=== PATIENT | male | born 1985 | race African-American/Black ===

== ENCOUNTER 2020-09-29 14:55 | Observation (INO) | payer OTHER ==
[2020-09-29 17:26] LABS: Basophils % (A) 0 %; Eosinophils # (A) 0.1 k/uL (0-0.7); Eosinophils % (A) 0 %; HCT 41.4 % (39.0-53.0); HGB 13.7 gm/dL (13.0-17.5); Lymphocytes # (A) 1.3 k/uL (1.0-4.8); Lymphocytes % (A) 6 %; MCHC 33.1 g/dL (31.0-37.0); MCV 87.5 fL (80.0-100.0); Mean Platelet Volume 7.8; Monocytes # (A) 0.9 k/uL (0-1.0); Monocytes % (A) 4 %; Neutrophils % (A) 88 %; Platelet Count 213 k/uL (150-450); RBC 4.73 m/uL (4.30-5.90); RDW 12.1 % (11.5-15.5); WBC 20.4 k/uL (3.8-10.6)
[2020-09-29 17:27] LABS: Appearance,Urine Clear (Clear); Bilirubin,Urine Negative (Negative); Blood,Urine Negative (Negative); Color,Urine Yellow; Glucose,Urine (UA) Negative (Negative); Ketones,Urine Trace (Negative); Leukocyte Esterase,Urine Negative (Negative); Nitrite,Urine Negative (Negative); Protein,Urine Trace (Negative); Specific Gravity,Urine 1.017 (1.001-1.035); Urobilinogen,Urine <2.0 mg/dL (<2.0)
[2020-09-29 17:32] LABS: Partial Thromboplastin Time 23.1 sec (22.0-30.0); Prothrombin Time 10.1 sec (9.0-12.0)
[2020-09-29 17:37] LABS: ALT 105 U/L (4-49); AST 52 U/L (17-59); African American GFR (CKD) >90 (>60 ml/min/1.73 sqM); Albumin 4.1 g/dL (3.5-5.0); Alkaline Phosphatase 56 U/L (38-126); Anion Gap 7 mmol/L; Blood Urea Nitrogen 13 mg/dL (9-20); Calcium 9.3 mg/dL (8.4-10.2); Carbon Dioxide 31 mmol/L (22-30); Chloride 100 mmol/L (98-107); Glucose 118 mg/dL (74-99); Magnesium 2.4 mg/dL (1.6-2.3); Non-African American GFR(CKD) >90 (>60 ml/min/1.73 sqM); Potassium 3.6 mmol/L (3.5-5.1); Sodium 138 mmol/L (137-145); Total Bilirubin 0.3 mg/dL (0.2-1.3); Total Protein 7.1 g/dL (6.3-8.2)
--- NOTE | 2020-09-29 18:15 | ED ---
General Adult HPI <Juan Olson Rasheed - Last Filed: 09/29/20 18:50> - General Source: patient, family, EMS Mode of arrival: EMS Limitations: physical limitation <Ceci Clark - Last Filed: 09/29/20 19:04> - General Chief complaint: Dizziness Stated complaint: dizziness Time Seen by Provider: 09/29/20 15:34 - History of Present Illness Initial comments: 35 year-old male patient currently incarcerated presents to the emergency department today for evaluation of chest pain, shortness of breath, near-syncope while working out today. Patient states that he developed dizziness, shortness of breath, and chest discomfort while working out just prior to arrival. He does have history of asthma was given a breathing treatment which then caused some tingling and numbness in his bilateral hands. Patient does have a history of hypertension and has been taking medication since being incarcerated about a month ago. Patient denies any other medical history. He is unsure about family history of cardiac disease. States he has been eating and drinking without difficulty. Denies any swelling or pain to his lower trauma knees or calves. Patient denies any recent rash, fever, chills, cough, abdominal pain, nausea, vomiting, diarrhea, constipation, back pain, hematuria, dysuria, urinary urge ncy, urinary frequency, headache, visual changes, or any other complaints. (Ceci Clark) - Related Data Home Medications Medication Instructions Recorded Confirmed Albuterol Nebulized [Ventolin 2.5 mg INHALATION RT-BID PRN 09/29/20 09/29/20 Nebulized] Lisinopril [Prinivil] 10 mg PO DAILY 09/29/20 09/29/20 hydroCHLOROthiazide 25 mg PO DAILY 09/29/20 09/29/20 Allergies Allergy/AdvReac Type Severity Reaction Status Date / Time No Known Allergies Allergy Verified 09/29/20 16:04 Review of Systems ROS Other: All systems not noted in ROS Statement are negative. <Juan Olson - Last Filed: 09/29/20 18:50> ROS Other: All systems not noted in ROS Statement are negative. <Ceci Clark - Last Filed: 09/29/20 19:04> ROS Statement: Those systems with pertinent positive or pertinent negative responses have been documented in the HPI. Past Medical History Past Medical History: Asthma, Hypertension History of Any Multi-Drug Resistant Organisms: None Reported Past Surgical History: No Surgical Hx Reported Past Psychological History: No Psychological Hx Reported Smoking Status: Current every day smoker Past Alcohol Use History: None Reported Past Drug Use History: None Reported <Ceci Clark - Last Filed: 09/29/20 19:04> General Exam Limitations: physical limitation General appearance: alert, in no apparent distress, other (This is a well developed, well nourished, adult male patient in no acute distress. Vital signs 97.7, pulse 102, R 18, BP 131/72, Pulse ox 99% on room air. ) Eye exam: Present: normal appearance, PERRL, EOMI. Absent: scleral icterus, conjunctival injection, periorbital swelling ENT exam: Present: normal exam, normal oropharynx, mucous membranes moist Respiratory exam: Present: normal lung sounds bilaterally. Absent: respiratory distress, wheezes, rales, rhonchi, stridor Cardiovascular Exam: Present: regular rate, normal rhythm, normal heart sounds. Absent: systolic murmur, diastolic murmur, rubs, gallop, clicks GI/Abdominal exam: Present: soft, normal bowel sounds. Absent: distended, tenderness, guarding, rebound, rigid Neurological exam: Present: alert, oriented X3, CN II-XII intact Psychiatric exam: Present: normal affect, normal mood Skin exam: Present: warm, dry, intact, normal color. Absent: rash <Ceci Clark - Last Filed: 09/29/20 19:04> Course <Juan Olson - Last Filed: 09/29/20 18:50> Vital Signs 09/29/20 15:15 Temperature 97.7 F Pulse Rate 102 H Respiratory 18 Rate Blood Pressure 131/72 O2 Sat by Pulse 99 Oximetry - Reevaluation(s) Reevaluation #1: 09/29/20 18:[address] Valencia covering for cardiology, recommends aspirin and heparin at this time. Case discussed with the admitting physician Dr. Motley (Juan Olson) EKG Findings - EKG Comments: EKG Findings:: EKG obtained at 1706 shows normal sinus rhythm with a ventricular rate of 85, OH interval 166, QRS duration 96, QT 366, QTc 435. <Ceci Clark - Last Filed: 09/29/20 19:04> Procedures - [facility] Protocol (Time Out) Nurse: Dottie Unger <Ceci Clark - Last Filed: 09/29/20 19:04> Medical Decision Making - Lab Data Result diagrams: 09/29/20 16:55 09/29/20 16:55 <Juan Olson - Last Filed: 09/29/20 18:50> - Lab Data Result diagrams: 09/29/20 16:55 09/29/20 16:55 - Radiology Data Radiology results: report reviewed, image reviewed <Ceci Clark - Last Filed: 09/29/20 19:04> - Medical Decision Making 35-year-old male patient who is currently incarcerated, presented to the emergency department today for evaluation after having an episode of shortness of breath, dizziness, and mild chest discomfort while working out. Patient had a near syncopal episode. Denies history of IV drug use. He states he is relatively healthy with history of hypertension. Upon arrival IV was inserted, labs obtained, EKG showed normal sinus rhythm no significant ST elevation or depression was noted. Chest x-ray showed no acute cardio pulmonary process. Labs reviewed and did reveal elevated white blood cell count at 20,000. Troponin is elevated 0.19. Patient is currently asymptomatic. We did initiate heparin therapy. CT angiography of the chest is pending. Patient will be admitted for further evaluation by cardiology. Patient is agreeable. (Ceci Clark) - Lab Data Lab Results 09/29/20 09/29/20 09/29/20 Range/Units 16:55 16:55 16:55 WBC 20.4 H (3.8-10.6) k/uL RBC 4.73 (4.30-5.90) m/uL Hgb 13.7 (13.0-17.5) gm/dL Hct 41.4 (39.0-53.0) % MCV 87.5 (80.0-100.0) fL MCH 29.0 (25.0-35.0) pg MCHC 33.1 (31.0-37.0) g/dL RDW 12.1 (11.5-15.5) % Plt Count 213 (150-450) k/uL Neutrophils % 88 % Lymphocytes % 6 % Monocytes % 4 % Eosinophils % 0 % Basophils % 0 % Neutrophils # 18.0 H (1.3-7.7) k/uL Lymphocytes # 1.3 (1.0-4.8) k/uL Monocytes # 0.9 (0-1.0) k/uL Eosinophils # 0.1 (0-0.7) k/uL Basophils # 0.0 (0-0.2) k/uL PT 10.1 (9.0-12.0) sec INR 1.0 (<1.2) APTT 23.1 (22.0-30.0) sec Sodium (137-145) mmol/L Potassium (3.5-5.1) mmol/L Chloride (98-107) mmol/L Carbon Dioxide (22-30) mmol/L Anion Gap mmol/L BUN (9-20) mg/dL Creatinine (0.66-1.25) mg/dL Est GFR (CKD-EPI)AfAm (>60 ml/min/1.73 sqM) Est GFR (CKD-EPI)NonAf (>60 ml/min/1.73 sqM) Glucose (74-99) mg/dL Calcium (8.4-10.2) mg/dL Magnesium (1.6-2.3) mg/dL Total Bilirubin (0.2-1.3) mg/dL AST (17-59) U/L ALT (4-49) U/L Alkaline Phosphatase (38-126) U/L Troponin I (0.000-0.034) ng/mL Total Protein (6.3-8.2) g/dL Albumin (3.5-5.0) g/dL Urine Color Yellow Urine Appearance Clear (Clear) Urine pH 6.0 (5.0-8.0) Ur Specific [place] 1.017 (1.001-1.035) Urine Protein Trace H (Negative) Urine Glucose (UA) Negative (Negative) Urine Ketones Trace H (Negative) Urine Blood Negative (Negative) Urine Nitrite Negative (Negative) Urine Bilirubin Negative (Negative) Urine Urobilinogen <2.0 (<2.0) mg/dL Ur Leukocyte Esterase Negative (Negative) 09/29/20 09/29/20 Range/Units 16:55 16:55 WBC (3.8-10.6) k/uL RBC (4.30-5.90) m/uL Hgb (13.0-17.5) gm/dL Hct (39.0-53.0) % MCV (80.0-100.0) fL MCH (25.0-35.0) pg MCHC (31.0-37.0) g/dL RDW (11.5-15.5) % Plt Count (150-450) k/uL Neutrophils % % Lymphocytes % % Monocytes % % Eosinophils % % Basophils % % Neutrophils # (1.3-7.7) k/uL Lymphocytes # (1.0-4.8) k/uL Monocytes # (0-1.0) k/uL Eosinophils # (0-0.7) k/uL Basophils # (0-0.2) k/uL PT (9.0-12.0) sec INR (<1.2) APTT (22.0-30.0) sec Sodium 138 (137-145) mmol/L Potassium 3.6 (3.5-5.1) mmol/L Chloride 100 (98-107) mmol/L Carbon Dioxide 31 H (22-30) mmol/L Anion Gap 7 mmol/L BUN 13 (9-20) mg/dL Creatinine 0.99 (0.66-1.25) mg/dL Est GFR (CKD-EPI)AfAm >90 (>60 ml/min/1.73 sqM) Est GFR (CKD-EPI)NonAf >90 (>60 ml/min/1.73 sqM) Glucose 118 H (74-99) mg/dL Calcium 9.3 (8.4-10.2) mg/dL Magnesium 2.4 H (1.6-2.3) mg/dL Total Bilirubin 0.3 (0.2-1.3) mg/dL AST 52 (17-59) U/L ALT 105 H (4-49) U/L Alkaline Phosphatase 56 (38-126) U/L Troponin I 0.192 H* (0.000-0.034) ng/mL Total Protein 7.1 (6.3-8.2) g/dL Albumin 4.1 (3.5-5.0) g/dL Urine Color Urine Appearance (Clear) Urine pH (5.0-8.0) Ur Specific [place] (1.001-1.035) Urine Protein (Negative) Urine Glucose (UA) (Negative) Urine Ketones (Negative) Urine Blood (Negative) Urine Nitrite (Negative) Urine Bilirubin (Negative) Urine Urobilinogen (<2.0) mg/dL Ur Leukocyte Esterase (Negative) - Radiology Data 2 view xray of the chest is obtained. Report was reviewed in its entirety. Impression by Dr. Kelly shows normal chest. (Ceci Clark) Disposition <Juan Olson - Last Filed: 09/29/20 18:50> Decision to Admit Reason: Admit from EC Decision Date: 09/29/20 Decision Time: 19:04 <Ceci Clark - Last Filed: 09/29/20 19:04> Clinical Impression: NSTEMI (non-ST elevated myocardial infarction) Disposition: ADMITTED IP TO THIS [facility] Condition: Serious Referrals: None,Stated [Primary Care Provider] - 1-2 days
--- NOTE | 2020-09-29 18:17 | XR ---
EXAMINATION TYPE: XR chest 2V DATE OF EXAM: 09/29/2020 COMPARISON: NONE HISTORY: Syncope TECHNIQUE: 2 views FINDINGS: Heart and mediastinum are normal. Lungs are clear. Diaphragm is normal. Bony thorax appears normal. IMPRESSION: Normal chest.
[2020-09-29] MEDS ORDERED: HEPARIN SODIUM,PORCINE 5,000 UNIT/ML 1 ML VIAL IV PRN (18:30)
[2020-09-29] MEDS ORDERED: HEPARIN SODIUM,PORCINE 5,000 UNIT/ML 1 ML VIAL IV ONE (18:30)
[2020-09-29] MEDS ORDERED: ASPIRIN 325 MG TAB PO STA (18:34)
[2020-09-29] MEDS ORDERED: NITROGLYCERIN SL TABS 0.4 MG TAB SUBLINGUAL PRN (19:10)
[2020-09-29] MEDS ORDERED: ASPIRIN 81 MG PO STA (19:10)
--- NOTE | 2020-09-29 19:11 | CT ---
EXAMINATION TYPE: CT angio chest DATE OF EXAM: 09/29/2020 COMPARISON: None HISTORY: elevated Trop chest pain CT DLP: 347.5 mGycm Automated exposure control for dose reduction was used. CONTRAST: Performed with IV Contrast, patient injected with 100 mL of Isovue 370. There are 3-D post processed images. The heart and mediastinum appear normal. There are no hilar masses. There is no mediastinal adenopath y. Thoracic aorta is intact. There is no aneurysm or dissection. There is no pericardial effusion. The lungs are clear of infiltrate. There is no evidence of a pulmonary mass. There is no pleural effu devora. Upper abdominal soft tissues are intact. There is normal contrast opacification of the pulmonary arteries. There are no filling defects. The bony thorax is intact. IMPRESSION: Normal exam. No evidence of pulmonary embolism.
[2020-09-29] MEDS ORDERED: ACETAMINOPHEN TAB 500 MG TAB PO STA (19:15)
[2020-09-29] MEDS: SODIUM CHLORIDE 0.9% 1,000 ML IV SCH (19:32)
[2020-09-29] MEDS: HEPARIN SOD,PORK IN 0.45% NACL 25,000 UNIT in 0.45% NACL 1 250ML.BAG IV SCH (19:43)
[2020-09-29] MEDS ORDERED: ALBUTEROL NEBULIZED 2.5 MG/3 ML INHALATION PRN (23:43)
--- NOTE | 2020-09-29 23:46 | P.HPIM ---
History of Present Illness H&P Date: 09/29/20 Patient is a 35-year-old male with a PMH of asthma and hypertension, currently incarcerated at the local residential who presented to the emergency room with complaints of chest pain and shortness of breath. The patient reports that he was working out in residential earlier today, doing standing leg-lifts when he suddenly developed sharp left-sided chest discomfort. The discomfort was nonradiating and was acutely followed by shortness of breath, diaphoresis, bilateral hand numbness, and dizziness. The patient initially attributed to his asthma and proceeded to take his albuterol inhaler which did not relieve his symptoms. The patient subsequently informed residential guards who activated EMS. The patient reports that his pain gradually began to improve en-route to the hospital as he received IV fluids and aspirin. Denied tearing pain or pain radiating to back. Denied abdominal pain, nausea, vomiting. At time of interview, he reported feeling back to his baseline with no active complaints. He reports that his father had an IA in his early 50s. Denied ever experiencing such symptoms the past. Reports excellent exercise tolerance. EKG in the emergency room revealed normal sinus rhythm at [address]/T-wave changes noted as reviewed by me. Chest CTA was unremarkable. Laboratory evaluation revealed a troponin of 0.192, WBC count 20.4, CO2 31, glucose 118, and magnesium 2.4. Review of Systems Pertinent positives and negatives as discussed in HPI, a complete review of systems was performed and all other systems are negative. Past Medical History Past Medical History: Asthma, Hypertension History of Any Multi-Drug Resistant Organisms: None Reported Past Surgical History: No Surgical Hx Reported Past Psychological History: No Psychological Hx Reported Smoking Status: Current every day smoker Past Alcohol Use History: None Reported Past Drug Use History: None Reported Medications and Allergies Home Medications Medication Instructions Recorded Confirmed Type Albuterol Nebulized [Ventolin 2.5 mg INHALATION RT-BID PRN 09/29/20 09/29/20 History Nebulized] Lisinopril [Prinivil] 10 mg PO DAILY 09/29/20 09/29/20 History hydroCHLOROthiazide 25 mg PO DAILY 09/29/20 09/29/20 History Allergies Allergy/AdvReac Type Severity Reaction Status Date / Time No Known Allergies Allergy Verified 09/29/20 16:04 Physical Exam Vitals: Vital Signs Temp Pulse Resp BP Pulse Ox 11/09/20 20:22 75 18 150/109 98 09/29/20 19:58 89 18 147/111 99 09/29/20 15:15 97.7 F 102 H 18 131/72 99 Intake and Output 09/29/20 09/29/20 09/29/20 06:59 14:59 22:59 Other: Weight 81.647 kg General: non toxic, no distress, appears at stated age, normal weight Derm: no unusual rashes/lesions no unusual ecchymoses, warm, dry Head: atraumatic, normocephalic, symmetric Eyes: EOMI, no lid lag, anicteric sclera, pupils equal round reactive to light ENT: Nose and ears atraumatic, no thrush, no pharyngeal erythema Neck: No thyromegaly, no cervical lymphadenopathy, trachea midline, supple Mouth: no lip lesion, mucus membranes moist Cardiovascular: S1S2 reg, no murmur, positive posterior tibial pulse bilateral, no edema, capillary refill less than 2 seconds Lungs: CTA bilateral, no rhonchi, no rales , no accessory muscle use Abdominal: soft, nontender to palpation, no guarding, no appreciable organomegaly, normal bowel sounds Ext: no gross muscle atrophy, muscle strength 5 out of 5 in all 4 extremities grossly, no contractures, Neuro: CN II-XI grossly intact, light touch intact all 4 extremities, finger to nose within normal limits, Psych: Alert, oriented, appropriate affect Results CBC & Chem 7: 09/29/20 16:55 09/29/20 16:55 Labs: Abnormal Lab Results - Last 24 Hours (Table) 09/29/20 09/29/20 09/29/20 Range/Units 16:55 16:55 16:55 WBC 20.4 H (3.8-10.6) k/uL Neutrophils # 18.0 H (1.3-7.7) k/uL Carbon Dioxide 31 H (22-30) mmol/L Glucose 118 H (74-99) mg/dL Magnesium 2.4 H (1.6-2.3) mg/dL ALT 105 H (4-49) U/L Troponin I (0.000-0.034) ng/mL Urine Protein Trace H (Negative) Urine Ketones Trace H (Negative) 09/29/20 09/29/20 Range/Units 16:55 20:31 WBC (3.8-10.6) k/uL Neutrophils # (1.3-7.7) k/uL Carbon Dioxide (22-30) mmol/L Glucose (74-99) mg/dL Magnesium (1.6-2.3) mg/dL ALT (4-49) U/L Troponin I 0.192 H* 0.170 H* (0.000-0.034) ng/mL Urine Protein (Negative) Urine Ketones (Negative) Assessment and Plan Plan: Non-ST elevation IA -Continue with heparin infusion, aspirin, statin -Cardiology consult -Cardiac monitoring -Nitroglycerin when necessary -Echocardiogram -Trend troponin -Supplemental oxygen when necessary Chronic conditions: Hypertension, asthma -Continue home medications DVT prophylaxis -Heparin infusion The patient is admitted with an anticipated greater than 2 midnight stay for evaluation of NSTEMI CODE STATUS: Full Code Discussed with: Patient Anticipated discharge date: in am Anticipated discharge place: home A total of 35 minutes was spent on the care of this complex patient more than 50% of the time was spent in counseling and care coordination.
[2020-09-30 08:10] LABS: Basophils % (A) 0 %; Eosinophils # (A) 0.1 k/uL (0-0.7); Eosinophils % (A) 1 %; HCT 40.4 % (39.0-53.0); HGB 12.9 gm/dL (13.0-17.5); Lymphocytes # (A) 2.5 k/uL (1.0-4.8); Lymphocytes % (A) 24 %; MCH 28.4 pg (25.0-35.0); MCV 88.7 fL (80.0-100.0); Mean Platelet Volume 7.7; Monocytes # (A) 0.6 k/uL (0-1.0); Monocytes % (A) 6 %; Neutrophils # (A) 6.9 k/uL (1.3-7.7); Neutrophils % (A) 67 %; Platelet Count 212 k/uL (150-450); RBC 4.55 m/uL (4.30-5.90); RDW 12.5 % (11.5-15.5); WBC 10.3 k/uL (3.8-10.6)
--- NOTE | 2020-09-30 08:19 | P.CRDCN ---
History of Present Illness Consult date: 09/30/20 Chief complaint: Chest pain History of present illness: This is a 35-year-old -[place] gentleman who was currently prisoner was brought to the hospital for further evaluation of chest discomfort. He was in his usual state of health when he was doing some exercise and workout at the present and after work he started experiencing discomfort in the chest. He described the discomfort as sharp over the left side of the chest without any radiation to the arms or neck or shoulders but it was associated with sweating and shortness of breath. No dizziness or lightheadedness and no syncope. Currently the patient is chest pain-free. The EKG showed sinus rhythm was nonspecific ST and T wave abnormalities. The cardiac enzymes were checked and came in to be abnormal and concerning for severe underlying coronary artery disease and acute coronary syndrome. Currently the patient is on aspirin as well as heparin. No history of coronary artery disease or congestive heart failure or cardiac arrhythmia. The patient does have hypertension only and he is also a smoker. The chest x-ray did not show any acute abnormalities. Giving the above finding I did recommend the patient to undergo with a coronary angiogram. The procedure in details was explained to the patient. I am going to schedule the heart catheterization to be done in the next few hours.. Meanwhile I am going to continue the aspirin and heparin. We will add Toprol-XL to the current medical regimen and add high intensity statin. Also we will obtain an echocardiogram was Doppler. Past Medical History Past Medical History: Asthma, Hypertension History of Any Multi-Drug Resistant Organisms: None Reported Past Surgical History: No Surgical Hx Reported Past Anesthesia/Blood Transfusion Reactions: No Reported Reaction Past Psychological History: No Psychological Hx Reported Smoking Status: Current some day smoker Past Alcohol Use History: None Reported Past Drug Use History: None Reported - Past Family History Father Family Medical History: Coronary Artery Disease (CAD) Medications and Allergies Home Medications Medication Instructions Recorded Confirmed Type Albuterol Nebulized [Ventolin 2.5 mg INHALATION RT-BID PRN 09/29/20 09/29/20 History Nebulized] Lisinopril [Prinivil] 10 mg PO DAILY 09/29/20 09/29/20 History hydroCHLOROthiazide 25 mg PO DAILY 09/29/20 09/29/20 History Allergies Allergy/AdvReac Type Severity Reaction Status Date / Time No Known Allergies Allergy Verified 09/29/20 16:04 Physical Exam Vitals: Vital Signs Temp Pulse Pulse Resp BP BP Pulse Ox 09/30/20 03:49 98.2 F 71 17 120/78 98 09/30/20 01:41 69 17 123/95 99 09/30/20 00:00 69 17 09/29/20 21:42 66 18 159/99 98 09/29/20 20:22 75 18 150/109 98 09/29/20 19:58 89 18 147/111 99 09/29/20 15:15 97.7 F 102 H 18 131/72 99 Intake and Output 09/29/20 09/30/20 09/30/20 22:59 06:59 14:59 Intake Total 56.665 Balance 56.665 Intake: Intake, IV Titration 56.665 Amount Heparin Sod,Pork in 0.45% 56.665 NaCl 25,000 unit In 0.45 % NaCl 1 250ml.bag @ 12 UNITS/KG/HR 9.798 mls/hr IV .Q24H [facility] Rx#: [id number] Other: Weight 81.647 kg 81.647 kg - Constitutional General appearance: no acute distress - Respiratory Respiratory: bilateral: CTA - Cardiovascular Rhythm: regular Heart sounds: normal: S1, S2 Results 09/30/20 07:38 09/29/20 16:55 Cardiac Enzymes 09/29/20 09/29/20 09/29/20 Range/Units 16:55 16:55 20:31 AST 52 (17-59) U/L Troponin I 0.192 H* 0.170 H* (0.000-0.034) ng/mL 09/30/20 Range/Units 00:17 AST (17-59) U/L Troponin I 0.105 H* (0.000-0.034) ng/mL Coagulation 09/29/20 09/30/20 Range/Units 16:55 00:17 PT 10.1 (9.0-12.0) sec APTT 23.1 80.6 H (22.0-30.0) sec CBC 09/29/20 09/30/20 Range/Units 16:55 07:38 WBC 20.4 H 10.3 (3.8-10.6) k/uL RBC 4.73 4.55 (4.30-5.90) m/uL Hgb 13.7 12.9 L (13.0-17.5) gm/dL Hct 41.4 40.4 (39.0-53.0) % Plt Count 213 212 (150-450) k/uL Comprehensive Metabolic Panel 09/29/20 Range/Units 16:55 Sodium 138 (137-145) mmol/L Potassium 3.6 (3.5-5.1) mmol/L Chloride 100 (98-107) mmol/L Carbon Dioxide 31 H (22-30) mmol/L BUN 13 (9-20) mg/dL Creatinine 0.99 (0.66-1.25) mg/dL Glucose 118 H (74-99) mg/dL Calcium 9.3 (8.4-10.2) mg/dL AST 52 (17-59) U/L ALT 105 H (4-49) U/L Alkaline Phosphatase 56 (38-126) U/L Total Protein 7.1 (6.3-8.2) g/dL Albumin 4.1 (3.5-5.0) g/dL Current Medications Generic Name Dose Route Start Last Admin Trade Name Freq PRN Reason Stop Dose Admin Albuterol Sulfate 2.5 mg 09/29/20 23:43 Albuterol Nebulized 2.5 Mg/3 Ml INHALATION RT-BID PRN Shortness Of Breath Aspirin 325 mg 09/30/20 09:00 Aspirin 325 Mg Tab PO DAILY [facility] Heparin Sodium (Porcine) 0 unit 09/29/20 18:30 Heparin Sodium,Porcine 5,000 Unit/Ml 1 Ml Vial IV PER PROTOCOL PRN Low PTT Protocol Hydrochlorothiazide 25 mg 09/30/20 09:00 Hydrochlorothiazide 25 Mg Tab PO DAILY [facility] Heparin Sodium/Sodium Chloride 250 mls @ 9.798 mls/hr 09/29/20 18:30 09/30/20 01:30 25,000 unit/ Sodium Chloride IV 10 units/kg/hr .Q24H SHAINA 8.165 mls/hr Titration Protocol 12 UNITS/KG/HR Sodium Chloride 1,000 mls @ 20 mls/hr 09/29/20 19:15 09/29/20 19:32 Saline 0.9% IV 20 mls/hr .Q24H SHAINA Administration Lisinopril 10 mg 09/30/20 09:00 Lisinopril 10 Mg Tab PO DAILY [facility] Metoprolol Succinate 12.5 mg 09/30/20 09:00 Metoprolol Succinate (Er) 25 Mg Tab.Er.24h PO DAILY SHAINA Nitroglycerin 0.4 mg 09/29/20 19:10 Nitroglycerin Sl Tabs 0.4 Mg Tab SUBLINGUAL Q5M PRN Chest Pain Intake and Output 09/29/20 09/30/20 09/30/20 22:59 06:59 14:59 Intake Total 56.665 Balance 56.665 Intake: Intake, IV Titration 56.665 Amount Heparin Sod,Pork in 0.45% 56.665 NaCl 25,000 unit In 0.45 % NaCl 1 250ml.bag @ 12 UNITS/KG/HR 9.798 mls/hr IV .Q24H [facility] Rx#: [id number] Other: Weight 81.647 kg 81.647 kg 09/30/20 07:38 09/29/20 16:55 Assessment and Plan Assessment: Assessment #1 acute non-ST patient myocardial infarction #2 hypertension #3 significant history of smoking Plan #1 I recommended proceeding with coronary angiogram #2 obtain an echocardiogram was Doppler #3 continue aspirin and heparin #4 add high intensity statin #5 add Toprol-XL We will continue following up with the patient
[2020-09-30 08:25] LABS: Cholesterol 129 mg/dL (<200); HDL Cholesterol 82 mg/dL (40-60); LDL Cholesterol,Calculated 39 mg/dL (0-99); Triglycerides 40 mg/dL (<150)
[2020-09-30] MEDS: hydroCHLOROthiazide 25 MG TAB PO SCH (09:47)
[2020-09-30] MEDS: METOPROLOL SUCCINATE (ER) 25 MG TAB.ER.24H PO SCH (09:47)
[2020-09-30] MEDS: ASPIRIN 325 MG TAB PO SCH (09:47)
[2020-09-30] MEDS: lisinopriL 10 MG TAB PO SCH (09:47)
--- NOTE | 2020-09-30 11:00 | ECHOF ---
Referral Reason:nstemi MEASUREMENTS -------- HEIGHT: 182.9 cm WEIGHT: 81.7 kg BP: IVSd: 1.3 cm (0.6 - 1.1) LVIDd: 4.2 cm (3.9 - 5.3) LVPWd: 1.4 cm (0.6 - 1.1) IVSs: 1.8 cm LVIDs: 3.4 cm LVPWs: 1.6 cm LA Diam: 4.2 cm (2.7 - 3.8) RVIDd: 2.9 cm (< 3.3) LAESV Index (A-L): 30.71 ml/m Ao Diam: 3.0 cm (2.0 - 3.7) AV Cusp: 1.8 cm (1.5 - 2.6) EPSS: 0.6 cm MV E Vasu: 0.74 m/s MV DecT: 195 ms MV A Vasu: 0.61 m/s MV E/A Ratio: 1.22 RAP: 5.00 mmHg RVSP: 19.78 mmHg MV EF SLOPE: 96.72 mm/s (70 - 150) MV EXCURSION: 19.09 mm (> 18.000) FINDINGS -------- Sinus rhythm. This was a technically good study. The left ventricular size is normal. There is mild concentric left ventricular hypertrophy. Overa ll left ventricular systolic function is low-normal with, an EF between 50 - 55 %. The right ventricle is normal in size. The left atrium is mildly dilated. LA is midly dilated 29-33ml/m2. The right atrial size is normal. The aortic valve is trileaflet, and appears structurally normal. No aortic stenosis or regurgitation. Mild mitral regurgitation is present. Mild tricuspid regurgitation present. Right ventricular systolic pressure is normal at < 35 mmHg. There is no pulmonic regurgitation present. The aortic root size is normal. There is no pericardial effusion. CONCLUSIONS -------- 1. The left ventricular size is normal. 2. There is mild concentric left ventricular hypertrophy. 3. Overall left ventricular systolic function is low-normal with, an EF between 50 - 55 %. 4. The right ventricle is normal in size. 5. The left atrium is mildly dilated. 6. LA is midly dilated 29-33ml/m2. 7. The right atrial size is normal. 8. Mild mitral regurgitation is present. 9. Mild tricuspid regurgitation present. 10. There is no pulmonic regurgitation present. 11. The aortic root size is normal. 12. There is no pericardial effusion. DIRECTOR MANUFACTURING ENGINEERING: Nadja Campbell RDCS
[2020-09-30] MEDS ORDERED: NITROGLYCERIN SL TABS 0.4 MG TAB SUBLINGUAL PRN (13:59)
[2020-09-30] MEDS ORDERED: ASPIRIN 325 MG TAB PO STA (13:59)
[2020-09-30] MEDS ORDERED: SODIUM CHLORIDE 0.9% 1,000 ML in EMPTY BAG 1 BAG IV ONE (13:59)
[2020-09-30] MEDS ORDERED: ATORVASTATIN 80 MG TAB PO STA (13:59)
[2020-09-30] MEDS ORDERED: ALPRAZolam 0.5 MG TAB PO PRN (13:59)
[2020-09-30] MEDS ORDERED: ALPRAZolam 0.25 MG TAB PO PRN (13:59)
--- NOTE | 2020-09-30 16:50 | P.PN ---
Subjective Progress Note Date: 09/30/20 Objective - Vital Signs Vital signs: Vital Signs Temp 98.6 F 09/30/20 16:00 Pulse 62 09/30/20 16:00 Resp 19 09/30/20 16:00 BP 137/79 09/30/20 16:00 Pulse Ox 99 09/30/20 16:00 Intake & Output 09/29/20 09/30/20 09/30/20 18:59 06:59 18:59 Intake Total 56.665 600 Balance 56.665 600 Weight 81.647 kg 81.647 kg Intake: Intake, IV Titration 56.665 Amount Heparin Sod,Pork in 0.45% 56.665 NaCl 25,000 unit In 0.45 % NaCl 1 250ml.bag @ 12 UNITS/KG/HR 9.798 mls/hr IV .Q24H [facility] Rx#: [id number] Oral 600 Other: # Voids 2 - Constitutional General appearance: Present: no acute distress - Respiratory Respiratory: bilateral: CTA - Cardiovascular Rhythm: regular - Gastrointestinal General gastrointestinal: Present: normal bowel sounds - Integumentary Integumentary: Present: normal - Labs CBC & Chem 7: 09/30/20 07:38 09/29/20 16:55 Labs: Abnormal Lab Results - Last 24 Hours (Table) 09/29/20 09/29/20 09/29/20 Range/Units 16:55 16:55 16:55 WBC 20.4 H (3.8-10.6) k/uL Hgb (13.0-17.5) gm/dL Neutrophils # 18.0 H (1.3-7.7) k/uL APTT (22.0-30.0) sec Carbon Dioxide 31 H (22-30) mmol/L Glucose 118 H (74-99) mg/dL Magnesium 2.4 H (1.6-2.3) mg/dL ALT 105 H (4-49) U/L Troponin I (0.000-0.034) ng/mL HDL Cholesterol (40-60) mg/dL Urine Protein Trace H (Negative) Urine Ketones Trace H (Negative) 09/29/20 09/29/20 09/30/20 Range/Units 16:55 20:31 00:17 WBC (3.8-10.6) k/uL Hgb (13.0-17.5) gm/dL Neutrophils # (1.3-7.7) k/uL APTT (22.0-30.0) sec Carbon Dioxide (22-30) mmol/L Glucose (74-99) mg/dL Magnesium (1.6-2.3) mg/dL ALT (4-49) U/L Troponin I 0.192 H* 0.170 H* 0.105 H* (0.000-0.034) ng/mL HDL Cholesterol (40-60) mg/dL Urine Protein (Negative) Urine Ketones (Negative) 09/30/20 09/30/20 09/30/20 Range/Units 00:17 07:38 07:38 WBC (3.8-10.6) k/uL Hgb 12.9 L (13.0-17.5) gm/dL Neutrophils # (1.3-7.7) k/uL APTT 80.6 H (22.0-30.0) sec Carbon Dioxide (22-30) mmol/L Glucose (74-99) mg/dL Magnesium (1.6-2.3) mg/dL ALT (4-49) U/L Troponin I (0.000-0.034) ng/mL HDL Cholesterol 82 H (40-60) mg/dL Urine Protein (Negative) Urine Ketones (Negative) 09/30/20 Range/Units 07:38 WBC (3.8-10.6) k/uL Hgb (13.0-17.5) gm/dL Neutrophils # (1.3-7.7) k/uL APTT 59.7 H (22.0-30.0) sec Carbon Dioxide (22-30) mmol/L Glucose (74-99) mg/dL Magnesium (1.6-2.3) mg/dL ALT (4-49) U/L Troponin I (0.000-0.034) ng/mL HDL Cholesterol (40-60) mg/dL Urine Protein (Negative) Urine Ketones (Negative) Assessment and Plan (1) NSTEMI (non-ST elevated myocardial infarction) Narrative/Plan: Appreciate cardiology input continue heparin drip with plan for cardiac catheterization, echo report reviewed Current Visit: Yes Status: Acute Code(s): I21.4 - NON-ST ELEVATION (NSTEMI) MYOCARDIAL INFARCTION SNOMED Code(s): 92626695 (2) Tobacco abuse Narrative/Plan: Nicotine patch, cross-link Current Visit: Yes Status: Acute Code(s): Z72.0 - TOBACCO USE SNOMED Code(s): 134209625 (3) Hypertension Narrative/Plan: Continue current regiment and titrate as needed Current Visit: Yes Status: Acute Code(s): I10 - ESSENTIAL (PRIMARY) HYPERTENSION SNOMED Code(s): 33430747
[2020-09-30] MEDS: HEPARIN SOD,PORK IN 0.45% NACL 25,000 UNIT in 0.45% NACL 1 250ML.BAG IV SCH (20:19)
[2020-09-30] MEDS: SODIUM CHLORIDE 0.9% 1,000 ML IV SCH (20:20)
[2020-09-30] MEDS ORDERED: ATORVASTATIN 80 MG TAB PO SCH (21:00)
[2020-10-01 00:31] VITALS: RESP 16
[2020-10-01] MEDS ORDERED: IV FLUID CONTINUATION 1,000 ML IV ONE (07:45)
[2020-10-01] MEDS ORDERED: MIDAZOLAM 2 MG/2 ML VIAL IVP ONE (08:16)
[2020-10-01] MEDS ORDERED: LIDOCAINE 1% INJ 10MG/ML (20 ML MDV) SQ ONE (08:29)
[2020-10-01] MEDS ORDERED: fentaNYL (PF) 50 MCG/ML 2 ML AMP IVP ONE (08:31)
[2020-10-01] MEDS ORDERED: HEPARIN SODIUM 1,000 UN/ML (10ML VL) IV ONE (08:33)
[2020-10-01] MEDS ORDERED: VERAPAMIL SYRINGE (5 MG/10 ML) INTRAARTER ONE (08:33)
[2020-10-01] MEDS ORDERED: IOPAMIDOL-370 125ML BTL INJ ONE (08:43)
[2020-10-01] MEDS ORDERED: RX INFO: IV CONTRAST WAS GIVEN 1 EACH MISC MISCELLANE PRN (08:44)
[2020-10-01] MEDS ORDERED: SODIUM CHLORIDE 0.9% 1,000 ML IV SCH (08:45)
[2020-10-01 08:46] LABS: Basophils % (A) 0 %; Eosinophils # (A) 0.1 k/uL (0-0.7); Eosinophils % (A) 2 %; HCT 40.6 % (39.0-53.0); HGB 12.9 gm/dL (13.0-17.5); Lymphocytes # (A) 2.5 k/uL (1.0-4.8); Lymphocytes % (A) 33 %; MCH 28.4 pg (25.0-35.0); MCHC 31.8 g/dL (31.0-37.0); MCV 89.3 fL (80.0-100.0); Mean Platelet Volume 7.7; Monocytes # (A) 0.4 k/uL (0-1.0); Monocytes % (A) 5 %; Neutrophils # (A) 4.4 k/uL (1.3-7.7); Neutrophils % (A) 58 %; Platelet Count 212 k/uL (150-450); RBC 4.55 m/uL (4.30-5.90); RDW 12.3 % (11.5-15.5); WBC 7.6 k/uL (3.8-10.6)
[2020-10-01 10:26] VITALS: TEMP 98.3
[2020-10-01] MEDS: ASPIRIN 325 MG TAB PO SCH (10:35)
[2020-10-01] MEDS: METOPROLOL SUCCINATE (ER) 25 MG TAB.ER.24H PO SCH (10:40)
[2020-10-01] MEDS: hydroCHLOROthiazide 25 MG TAB PO SCH (10:41)
[2020-10-01] MEDS: lisinopriL 10 MG TAB PO SCH (10:41)
--- NOTE | 2020-10-01 13:11 | CC ---
CARDIAC CATHETERIZATION REPORT DATE OF SERVICE: 09/29/2020 PERFORMING PHYSICIAN: Justen Hinojosa MD. PROCEDURE PERFORMED: 1. Selective right and left coronary angiogram. 2. Left heart catheterization. INDICATION: This is a 35-year-old gentleman with hypertension and history of smoking who presented to the hospital with chest discomfort. He was brought from a [facility]. The troponin came into be slightly abnormal. The EKG also showed sinus rhythm with diffuse nonspecific ST and T-wave abnormalities. Because of that, a heart catheterization was advised. APPROACH: Right radial artery. COMPLICATION: None. LEVEL OF SEDATION: Moderate with sedation length of 15 minutes. PROCEDURE DESCRIPTION: After obtaining an informed consent, the patient was brought to the cardiac cath lab tech. The right radial artery was cannulated using micropuncture technique, the micropuncture wire passed easily, then I placed a 5-Bulgarian sheath. I did selective right and left coronary angiogram with JR3.5 and JL3.0 catheters. Left heart catheterization was performed using the JR3.5 catheters, which crossed the aortic valve then I did pullback across the valve. The procedure was completed without any complication. SELECTIVE CORONARY ANGIOGRAM: 1. The right coronary artery is a large caliber vessel, it is a dominant vessel and appeared to be angiographically normal. 2. The left main is angiographically normal, it bifurcates into LCX and LAD. 3. The LCX is a large caliber vessel. It is a nondominant vessel. The LCX proximally gives rise into a large OM branch which appeared to be angiographically normal and bifurcates into two subbranches and the circumflex continues after that as a moderate caliber vessel in the AV groove. 4. The LAD, the proximal LAD appeared to be angiographically normal. It gives rise into a large diagonal branch which seems to be normal. The mid and distal LAD appeared to be angiographically normal. 5. Hemodynamic: The LVEDP was about 10 to 12 mmHg without significant gradient across the aortic valve. CONCLUSION: 1. Normal coronary angiogram. 2. Normal LVEDP. POSTPROCEDURE MANAGEMENT: 1. Medical treatment. 2. Follow up with the patient. MMODL / IJN: [id number] /
[2020-10-01 14:36] VITALS: BP 118/84; PULSE 63
--- NOTE | 2020-10-01 17:09 | P.DS ---
Providers Date of admission: 09/29/20 18:26 Attending physician: Steve Motley Consults: 09/29/20 18:37 Consult Physician Urgent Consulting Provider: Sea Valencia Consult Reason/Comments: NSTEMI Do you want consulting provider notified?: Already Contacted Primary care physician: Stated None - Discharge Diagnosis(es) (1) NSTEMI (non-ST elevated myocardial infarction) Type II likely secondary to uncontrolled hypertension negative cath Status: Acute (2) Tobacco abuse Consult Status: Acute (3) Hypertension Status: Acute Hospital Course: the patient is a 35-year-old male history of tobacco abuse, hypertension who is currently incarcerated presented with chest pain and was found to have positive troponins. The patient was taken to cardiac catheterization today and had a negative cardiac catheterization he was monitored post procedure per protocol currently without any pain and is stable for discharge. Etiology of his elevated troponin likely secondary to demand ischemia Patient Condition at Discharge: Good Plan - Discharge Summary Discharge Rx Participant: Yes New Discharge Prescriptions: No Action hydroCHLOROthiazide 25 mg PO DAILY Lisinopril [Prinivil] 10 mg PO DAILY Albuterol Nebulized [Ventolin Nebulized] 2.5 mg INHALATION RT-BID PRN PRN Reason: Shortness Of Breath Discharge Medication List Albuterol Nebulized [Ventolin Nebulized] 2.5 mg INHALATION RT-BID PRN 09/29/20 [History] Lisinopril [Prinivil] 10 mg PO DAILY 09/29/20 [History] hydroCHLOROthiazide 25 mg PO DAILY 09/29/20 [History] Follow up Appointment(s)/Referral(s): None,Stated [Primary Care Provider] - 1-2 days Patient Instructions/Handouts: Heart Attack (DC), Right Heart Catheterization (DC), Heart Healthy Diet (DC), Hypertension (DC) Discharge Disposition: DC/TRANSFER COURT/LAW
== END 2020-10-01 16:55 ==
LOC: EC 14:55 → 3SCARD 18:26 → EEVIPCON 18:26 → 3SCARD 18:26 → UNDOADMIN 18:26 → 3SCARD 09-30 00:17
PROVIDERS: ADMIT Internal Medicine; ATTEND Internal Medicine
DX: I21.4 Non-ST elevation (NSTEMI) myocardial infarction (principal); I10 Essential (primary) hypertension; J45.909 Unspecified asthma, uncomplicated; F17.200 Nicotine dependence, unspecified, uncomplicated; Z82.49 Family history of ischemic heart disease and other diseases of the circulatory system; Z79.899 Other long term (current) drug therapy
CPT/HCPCS: 96366 ×2; 93005 ×2; 96376; 96365; 99285; 36415; 93306; 93458; 80061; 80053; 83735; 84484 ×2; 85025 ×3; 85610; 85730 ×3; 81003; 71046; 71275; G0378 ×2; C1769 ×3; C1894; J2250; J1644 ×3; J2001; J3010; Q9967 ×2